=== PATIENT | male | born 1955 | race Caucasian/White ===

== ENCOUNTER 2023-04-10 20:20 | Observation (INO) ==
--- NOTE | 2023-04-10 20:34 | DR.DIZZY ---
HPI Time seen Time Seen by Provider: 04/10/23 20:33 Complaint Chief Complaint Doctor Comments: Patient states that he had 2 glasses of sangria yesterday. Today at 4pm he had 4 episodes of diarrhea that was bright red and subsequently had 3 syncopal episodes,a headache,dizziness, back pain,diaphoresis .Patient had dizziness 6 weeks ago and was evaluated by the cardiologists at [facility] in [place]. He had 5 vessels that had occlusions and stents were placed in 2 of them. Patient has been taking eliquis and plavix since the stents were placed. Patient denies: chest pain,sob,n,v. Context Stroke Symptoms: Dizziness; denies Ataxia, Aphasia, Acute confusion, Weakness of limb, Numbness of limbs or Slurring PMH PMH Past Medical History: Coronary Artery Disease, Dyslipidemia and Hypertension Past Surgical History: Yes Surgical History: Angioplasty/Stents and Ortho Surgery Family History Family Medical History: Diabetes Mellitus, Coronary Artery Disease, Sudden Cardiac and Hypertension Social History Do you use any recreational Drugs:: Yes ROS Review of Systems Constitutional: Diaphoresis Eyes: No Symptoms Reported ENTM: No Symptoms Reported Respiratoy: No Symptoms Reported Cardiovascular: Palpitations and Syncope (x3 episodes today); negative Chest Pain Gastrointestinal/Abdominal: Abdominal Pain and Diarrhea (x4 episodes); negative Nausea or Vomiting Genitourinary: No Symptoms Reported Neurological: No Symptoms Reported Musculoskeletal: Back Pain Integumentary: No Symptoms Reported Hematologic/Lymphatic: No Symptoms Reported and Easy Bleeding (bloody diarrhea) Endocrine: No Symptoms Reported Psychiatric: No Symptoms Reported All Other Systems: Reviewed and Negative PE Vital Signs Vitals: Vital Signs Temperature 98.5 F Pulse Rate 66 Pulse Rate 66 Pulse Rate 80 Pulse Rate 65 Pulse Rate 68 Pulse Rate 67 Pulse Rate 64 Pulse Rate 65 Pulse Rate 68 Pulse Rate 67 Pulse Rate 74 Pulse Rate 72 Pulse Rate 73 Pulse Rate 86 Pulse Rate 69 Pulse Rate 66 Pulse Rate 71 Pulse Rate 65 Pulse Rate 76 Respiratory Rate 16 Respiratory Rate 33 Respiratory Rate 24 Respiratory Rate 16 Respiratory Rate 17 Respiratory Rate 23 Respiratory Rate 14 Respiratory Rate 14 Respiratory Rate 17 Respiratory Rate 15 Respiratory Rate 21 Respiratory Rate 18 Respiratory Rate 15 Respiratory Rate 21 Respiratory Rate 17 Respiratory Rate 15 Respiratory Rate 15 Respiratory Rate 15 Respiratory Rate 24 Blood Pressure 121/64 Blood Pressure 122/67 Blood Pressure 122/62 Blood Pressure 123/61 Blood Pressure 123/61 Blood Pressure 124/58 Blood Pressure 123/56 Blood Pressure 139/65 Blood Pressure 159/69 Blood Pressure 129/72 Blood Pressure 130/69 Blood Pressure 118/69 O2 Sat by Pulse Oximetry 96 O2 Sat by Pulse Oximetry 96 O2 Sat by Pulse Oximetry 99 O2 Sat by Pulse Oximetry 96 O2 Sat by Pulse Oximetry 98 O2 Sat by Pulse Oximetry 98 O2 Sat by Pulse Oximetry 96 O2 Sat by Pulse Oximetry 96 O2 Sat by Pulse Oximetry 98 O2 Sat by Pulse Oximetry 97 O2 Sat by Pulse Oximetry 98 O2 Sat by Pulse Oximetry 99 O2 Sat by Pulse Oximetry 100 O2 Sat by Pulse Oximetry 100 O2 Sat by Pulse Oximetry 96 O2 Sat by Pulse Oximetry 97 O2 Sat by Pulse Oximetry 97 O2 Sat by Pulse Oximetry 97 O2 Sat by Pulse Oximetry 98 04/10/23 20:37 04/10/23 20:39 04/10/23 20:40 Temperature 98.5 F Pulse Rate 76 65 71 Respiratory Rate 24 15 15 O2 Sat by Pulse Oximetry 98 97 97 Oxygen Delivery Method Room Air Blood Pressure 118/69 Blood Pressure Mean Weight 210 lb 04/10/23 20:40 04/10/23 20:45 04/10/23 20:50 Temperature Pulse Rate 66 Respiratory Rate 15 O2 Sat by Pulse Oximetry 97 Oxygen Delivery Method Blood Pressure 130/69 129/72 Blood Pressure Mean 94 95 Weight 04/10/23 20:50 04/10/23 21:00 04/10/23 21:01 Temperature Pulse Rate 69 86 Respiratory Rate 17 21 O2 Sat by Pulse Oximetry 96 100 Oxygen Delivery Method Blood Pressure 159/69 Blood Pressure Mean 99 Weight 04/10/23 21:01 04/10/23 21:18 04/10/23 21:30 Temperature Pulse Rate 73 72 74 Respiratory Rate 15 18 21 O2 Sat by Pulse Oximetry 100 99 98 Oxygen Delivery Method Blood Pressure Blood Pressure Mean Weight 04/10/23 21:45 04/10/23 22:00 04/10/23 22:00 Temperature Pulse Rate 67 68 Respiratory Rate 15 17 O2 Sat by Pulse Oximetry 97 98 Oxygen Delivery Method Blood Pressure 139/65 Blood Pressure Mean 93 Weight 04/10/23 22:10 04/10/23 22:10 04/10/23 22:15 Temperature Pulse Rate 65 64 Respiratory Rate 14 14 O2 Sat by Pulse Oximetry 96 96 Oxygen Delivery Method Blood Pressure 123/56 Blood Pressure Mean 81 Weight 04/10/23 22:20 04/10/23 22:20 04/10/23 22:30 Temperature Pulse Rate 67 Respiratory Rate 23 O2 Sat by Pulse Oximetry 98 Oxygen Delivery Method Blood Pressure 124/58 123/61 Blood Pressure Mean 83 86 Weight 04/10/23 22:30 04/10/23 22:30 04/10/23 22:40 Temperature Pulse Rate 68 Respiratory Rate 17 O2 Sat by Pulse Oximetry 98 Oxygen Delivery Method Blood Pressure 123/61 122/62 Blood Pressure Mean 86 86 Weight 04/10/23 22:40 04/10/23 22:45 04/10/23 22:50 Temperature Pulse Rate 65 80 66 Respiratory Rate 16 24 33 H O2 Sat by Pulse Oximetry 96 99 96 Oxygen Delivery Method Blood Pressure Blood Pressure Mean Weight 04/10/23 22:50 04/10/23 23:00 04/10/23 23:00 Temperature Pulse Rate 66 Respiratory Rate 16 O2 Sat by Pulse Oximetry 96 Oxygen Delivery Method Blood Pressure 122/67 121/64 Blood Pressure Mean 88 87 Weight MDM Differential Diagnosis Differential Diagnosis: Myocardial infarction Differential Diagnosis Comment: GI bleed,Obstr/Perf/inflam,electrolyte abnormality COURSE Treatment Treatment: 20:33 Patient was brought to a monitored room.IV access was initiated 21:27 Patient has a magnesium 1.6 and will be given magnesium 2g iv.Patient has pos. hemoccult and received protonix 80mg iv. 22:50 Patient has been accepted to Dr Stroud's service for further inpatient evaluation. Abd/pelvis CT with iv contrast revealed diverticulosis and states that it may be a source of the bleeding.Patient has been stable in the ED. [facility] Labs Reviewed Laboratory Results Reviewed?: Yes Result Diagrams: 04/10/23 20:50 04/10/23 20:50 Laboratory: WBC 10.5 X10^3/uL (3.6-10.0) H 04/10/23 20:50 RBC 3.48 X10^6/uL (4.7-6.0) L 04/10/23 20:50 Hgb 10.3 g/dL (13.5-18.0) L 04/10/23 20:50 Hct 28.8 % (42.0-54.0) L 04/10/23 20:50 MCV 82.7 fL (80.0-100.0) 04/10/23 20:50 MCH 29.8 pg (27.0-34.0) 04/10/23 20:50 MCHC 36.0 g/dL (33.0-35.0) H 04/10/23 20:50 RDW 13.4 % (11.6-16.5) 04/10/23 20:50 Plt Count 206 X10^3/uL (150.0-450.0) 04/10/23 20:50 MPV 8.0 fL (7.4-11.0) 04/10/23 20:50 Neut % (Auto) 76.7 % (42.0-75.0) H 04/10/23 20:50 Lymph % (Auto) 15.6 % (21.0-51.0) L 04/10/23 20:50 [place] % (Auto) 6.8 % (0.0-13.0) 04/10/23 20:50 Eos % (Auto) 0.5 % (0.9-2.9) L 04/10/23 20:50 Baso % (Auto) 0.4 % (0.2-1.0) 04/10/23 20:50 Neut # (Auto) 8.0 x10^3/uL (2.2-4.8) H 04/10/23 20:50 Lymph # (Auto) 1.6 X10^3/uL (1.3-2.9) 04/10/23 20:50 [place] # (Auto) 0.7 x10^3/uL (0.3-0.8) 04/10/23 20:50 Eos # (Auto) 0.1 x10^3/uL (0.0-0.2) 04/10/23 20:50 Baso # (Auto) 0.0 X10^3/uL (0.0-0.1) 04/10/23 20:50 Absolute Nucleated RBC 0.0 /100WBC 04/10/23 20:50 PT 13.9 SECONDS (11.8-14.3) 04/10/23 20:50 INR Target Range - 04/10/23 20:50 INR 1.09 (0.8-1.3) 04/10/23 20:50 APTT 25.8 SECONDS (22.9-36.5) 04/10/23 20:50 PTT Comment - 06/25/23 20:50 D-Dimer 0.40 ug/ml (0.0-0.57) 04/10/23 20:50 Sodium 139 mmol/L (136-145) 04/10/23 20:50 Corrected Sodium 140 mmol/L (136-145) 04/10/23 20:50 Potassium 4.1 mmol/L (3.5-5.1) 04/10/23 20:50 Chloride 104 mmol/L (98-107) 04/10/23 20:50 Carbon Dioxide 24.5 mmol/L (21-32) 04/10/23 20:50 BUN 23 mg/dL (7-18) H 04/10/23 20:50 Creatinine 1.13 mg/dL (0.70-1.30) 04/10/23 20:50 Est GFR (MDRD) Af Amer > 60 (>60) 04/10/23 20:50 Est GFR (MDRD) Non-Af > 60 (>60) 04/10/23 20:50 Glucose 130 mg/dL (65-99) H 04/10/23 20:50 Lactic Acid 1.0 mmol/L (0.4-2.0) 04/10/23 20:50 Calcium 8.0 mg/dL (8.5-10.1) L 04/10/23 20:50 Corrected Calcium 8.6 mg/dL (8.5-10.1) 04/10/23 20:50 Magnesium 1.6 mg/dL (2.0-2.9) L 04/10/23 20:50 Total Bilirubin 0.30 mg/dL (0.2-1.0) 04/10/23 20:50 AST 22 Units/L (15-37) 04/10/23 20:50 ALT 37 Units/L (12-78) 04/10/23 20:50 Alkaline Phosphatase 48 Units/L (46-116) 04/10/23 20:50 Creatine Kinase 112 Units/L (39-308) 04/10/23 20:50 Troponin I High Sens 34.5 ng/L (4.0-60.0) 04/10/23 20:50 C-Reactive Protein 1.00 mg/L (0-3.0) 04/10/23 20:50 B-Natriuretic Peptide 43.2 pg/mL (0-79) 04/10/23 20:50 Total Protein 6.4 g/dL (6.4-8.2) 04/10/23 20:50 Albumin 3.3 g/dL (3.4-5.0) L 04/10/23 20:50 Globulin 3.1 g/dL (2.5-4.5) 04/10/23 20:50 Albumin/Globulin Ratio 1.1 Ratio (1.1-2.1) 04/10/23 20:50 Stool Occult Blood Positive (NEGATIVE) A 04/10/23 20:59 XRAY X-ray Results: History: Syncope Episode Relevant Clinical Information Exam :BRAIN W/O CON Technique: Thin section axial ct images of the brain were obtained from the foramen magnum to the vertex without contrast. Sagittal and coronal rebecca nstructions were also performed. Comparison: None Findings: The ventricles are within normal limits in size. No midline shift, mass effect or extra-axial fluid collections. No evidence of acute hemorrhage or acute macroinfarction. Mild cortical atrophy compatible with patient's age. The visualized paranasal sinuses and mastoids are unremarkable. The calvarium is intact. Impression: Mild cortical atrophy. No acute intracranial pathology Electronically signed by: Matty Bermeo (Apr 10, 2023 21:31:49) HISTORY Rectal Bleeding STUDY ABDOMEN/PELVIS W/O CON COMPARISON TECHNIQUE Multiple axial images of the abdomen and pelvis were obtained from the lung bases to the pubic symphysis without the administration of IV contrast. Dose reduction techniques including Automated Exposure Control (AEC) and adjustment of mA and kV were utilized. FINDINGS Minimal basilar atelectasis without effusion. The heart size is normal. There is atherosclerosis in the circumflex and RCA. The liver, gallbladder, spleen, adrenal glands are normal. There is pancreatic atrophy. The kidneys are normal in size and there is no stone or hydronephrosis. There is fluid in the stomach. Small bowel and appendix are normal. There is diverticulosis of the distal colon but no convincing diverticulitis. Urinary bladder is normal. Prostate measures up to 6.0 cm in diameter. There is no worrisome bone marrow lesion. IMPRESSION 1. No etiology for rectal bleeding identified with the exception of the diverticulosis in the distal colon which could be a source of bleeding. 2. Prostate hypertrophy. Electronically signed by: Carlos Daley (Apr 10, 2023 22:34:43) EKG Compared to prior EKG Dated: 04/10/23 Rate: 67 [place]: Normal (Negative axis) Rhythm: NSR and PVCs (occasional Pvcs) Opioid Opioid Risk Tool Age (Asif box if 16-45): No History of Preadolescent Sexual Abuse: No Total: 0 Total Score Risk Category: Low Risk Copyright: [facility] predicting aberrant behaviors Discharge Plan Diagnosis Discharge Problem: Dizziness, GI (gastrointestinal hemorrhage), Hypomagnesemia Discharge Plan Patient Disposition: ADMITTED INPATIENT Condition: Stable Prescriptions: No Action aspirin 81 mg tablet,delayed release (DR/EC) 81 mg PO QDAY diltiazem HCl 60 mg tablet 60 mg PO QDAY rosuvastatin 5 mg tablet 5 mg PO QDAY metoprolol tartrate 25 mg tablet 12.5 mg PO BID prasugrel 10 mg tablet 10 mg PO QDAY Eliquis 5 mg tablet 5 mg PO BID Health Concerns: Post Hospitalization: new medications and changes needed to prevent readmission or further decline. Pt educated and given instructions on all concerns. Plan of Treatment: Continue with present treatment and follow up plan. Pt is to keep follow up appointment as instructed and take medications as ordered. Orders to Discharge Patient Discharge Orders: Transfer (Routine); Ordered 04/10/23 Ordered By: Katty Young Follow ups/Referrals Follow ups/Referrals: Dorian Lizama [Primary Care Provider] - 3 days Instructions Stand Alone Forms: Post Hospital Follow Up Care ADDITIONAL NOTES Additional Notes Additional Notes: EKG #2 23:04 RATE 69 Rhythm NSR
--- NOTE | 2023-04-10 20:46 | EKG ---
Test Reason : syncope, sob, diaphoresis Blood Pressure : */* mmHG Vent. Rate : 67 BPM Atrial Rate : 67 BPM P-R Int : 186 ms QRS Dur : 80 ms QT Int : 388 ms P-R-T Axes : 42 -23 11 degrees QTc Int : 409 ms Sinus rhythm with occasional premature ventricular complexes Inferior-posterior infarct , age undetermined Abnormal ECG No previous ECGs available Confirmed by Luís Harding ([id number]) on 04/11/2023 7:57:19 PM Referred By: Confirmed By: Luís Harding
[2023-04-10 21:04] LABS: BASOPHILS % (AUTO) 0.4 % (0.2-1.0); EOSINOPHILS # (AUTO) 0.1 x10^3/uL (0.0-0.2); EOSINOPHILS % (AUTO) 0.5 % (0.9-2.9); HEMATOCRIT 28.8 % (42.0-54.0); HEMOGLOBIN 10.3 g/dL (13.5-18.0); LYMPHOCYTES # (AUTO) 1.6 X10^3/uL (1.3-2.9); LYMPHOCYTES % (AUTO) 15.6 % (21.0-51.0); MEAN CORPUSCULAR HEMOGLOBIN 29.8 pg (27.0-34.0); MEAN CORPUSCULAR VOLUME 82.7 fL (80.0-100.0); MONOCYTES # (AUTO) 0.7 x10^3/uL (0.3-0.8); MONOCYTES % (AUTO) 6.8 % (0.0-13.0); NEUTROPHILS % (AUTO) 76.7 % (42.0-75.0); PLATELET COUNT 206 X10^3/uL (150.0-450.0); RED BLOOD COUNT 3.48 X10^6/uL (4.7-6.0); RED CELL DISTRIBUTION WIDTH 13.4 % (11.6-16.5); WHITE BLOOD COUNT 10.5 X10^3/uL (3.6-10.0)
[2023-04-10 21:07] LABS: INR 1.09 (0.8-1.3)
[2023-04-10 21:14] LABS: ALANINE AMINOTRANSFERASE 37 Units/L (12-78); ALBUMIN 3.3 g/dL (3.4-5.0); ALKALINE PHOSPHATASE 48 Units/L (46-116); ASPARTATE AMINO TRANSFERASE 22 Units/L (15-37); BLOOD UREA NITROGEN 23 mg/dL (7-18); CARBON DIOXIDE 24.5 mmol/L (21-32); CHLORIDE 104 mmol/L (98-107); COR CA(FOR HYPOALB) 8.6 mg/dL (8.5-10.1); COR NA(FOR HYPERGLY) 140 mmol/L (136-145); CREATINE KINASE 112 Units/L (39-308); CREATININE 1.13 mg/dL (0.70-1.30); GLUCOSE 130 mg/dL (65-99); MAGNESIUM 1.6 mg/dL (2.0-2.9); POTASSIUM 4.1 mmol/L (3.5-5.1); SODIUM 139 mmol/L (136-145); TOTAL PROTEIN 6.4 g/dL (6.4-8.2); eGFR NON BLACK RACES > 60 (>60)
[2023-04-10] MEDS ORDERED: PROTONIX INJ 40 MG VIAL IVP ONE (21:26)
[2023-04-10] MEDS ORDERED: MAGNESIUM SULFATE 1 GRAM/100 mL PREMIX 1 G/100 ML BAG IV ONE ×4 (21:27→21:41)
[2023-04-10] MEDS ORDERED: PROTONIX INJ 40 MG VIAL ONE (21:30)
--- NOTE | 2023-04-10 21:33 | CT ---
History: Syncope Episode Relevant Clinical InformationExam :BRAIN W/O CONTechnique: Thin section axial ct images of the brain were obtained from the foramen magnum to the vertex without contrast. Sagittal and coronal reconstructions were also performed.Comparison: NoneFindings:The ventricles are within normal limits in size. No midline shift, mass effect or extra-axial fluid collections. No evidence of acute hemorrhage or acute macroinfarction. Mild cortical atrophy compatible with patient's age.The visualized paranasal sinuses and mastoids are unremarkable. The calvarium is intact.Impression:Mild cortical atrophy.No acute intracranial pathologyElectronically signed by: Matty Bermeo (Apr 10, 2023 21:31:49)
--- NOTE | 2023-04-10 22:35 | CT ---
HISTORYRectal BleedingSTUDYABDOMEN/PELVIS W/O CONCOMPARISONTECHNIQUEMultiple axial images of the abdomen and pelvis were obtained from the lung bases to the pubic symphysis without the administration of IV contrast. Dose reduction techniques including Automated Exposure Control (AEC) and adjustment of mA and kV were utilized.FINDINGSMinimal basilar atelectasis without effusion. The heart size is normal. There is atherosclerosis in the circumflex and RCA. The liver, gallbladder, spleen, adrenal glands are normal. There is pancreatic atrophy. The kidneys are normal in size and there is no stone or hydronephrosis. There is fluid in the stomach. Small bowel and appendix are normal. There is diverticulosis of the distal colon but no convincing diverticulitis. Urinary bladder is normal. Prostate measures up to 6.0 cm in diameter. There is no worrisome bone marrow lesion.IMPRESSION1. No etiology for rectal bleeding identified with the exception of the diverticulosis in the distal colon which could be a source of bleeding. 2. Prostate hypertrophy.Electronically signed by: Carlos Daley (Apr 10, 2023 22:34:43)
--- NOTE | 2023-04-10 23:06 | EKG ---
Test Reason : palpitations Blood Pressure : */* mmHG Vent. Rate : 69 BPM Atrial Rate : 69 BPM P-R Int : 192 ms QRS Dur : 78 ms QT Int : 404 ms P-R-T Axes : 49 -17 29 degrees QTc Int : 432 ms Normal sinus rhythm Inferior-posterior infarct (cited on or before 10-APR-2023) Abnormal ECG When compared with ECG of 10-APR-2023 20:44, (Unconfirmed) premature ventricular complexes are no longer present Confirmed by Luís Harding (4) on 04/11/2023 7:57:11 PM Referred By: Confirmed By: Luís Harding
[2023-04-11 00:49] VITALS: BMI 28.2
[2023-04-11 05:20] LABS: BASOPHILS % (AUTO) 0.5 % (0.2-1.0); EOSINOPHILS # (AUTO) 0.1 x10^3/uL (0.0-0.2); EOSINOPHILS % (AUTO) 0.8 % (0.9-2.9); HEMATOCRIT 27.1 % (42.0-54.0); HEMOGLOBIN 9.6 g/dL (13.5-18.0); LYMPHOCYTES # (AUTO) 1.9 X10^3/uL (1.3-2.9); LYMPHOCYTES % (AUTO) 26.8 % (21.0-51.0); MEAN CORPUSCULAR HEMOGLOBIN 29.6 pg (27.0-34.0); MEAN CORPUSCULAR HGB CONC 35.5 g/dL (33.0-35.0); MEAN CORPUSCULAR VOLUME 83.5 fL (80.0-100.0); MEAN PLATELET VOLUME 8.4 fL (7.4-11.0); MONOCYTES # (AUTO) 0.6 x10^3/uL (0.3-0.8); MONOCYTES % (AUTO) 8.4 % (0.0-13.0); NEUTROPHILS # (AUTO) 4.6 x10^3/uL (2.2-4.8); NEUTROPHILS % (AUTO) 63.5 % (42.0-75.0); PLATELET COUNT 194 X10^3/uL (150.0-450.0); RED BLOOD COUNT 3.24 X10^6/uL (4.7-6.0); WHITE BLOOD COUNT 7.2 X10^3/uL (3.6-10.0)
--- NOTE | 2023-04-11 05:33 | RAD ---
HISTORYPalpitations and shortness of breathSTUDYCHEST, 1 MGNNYEIYHTYVVD40/30/[facility]INDINGSThe trachea is midline. The cardiac silhouette is unremarkable . The lungs are clear without focal infiltrate or effusion. The bony thorax is unremarkable.IMPRESSIONNo acute cardiopulmonary disease.Electronically signed by: RENAE WEAVER (Apr 11, 2023 05:31:54)
[2023-04-11 05:38] LABS: ALANINE AMINOTRANSFERASE 31 Units/L (12-78); ALKALINE PHOSPHATASE 43 Units/L (46-116); ASPARTATE AMINO TRANSFERASE 18 Units/L (15-37); BLOOD UREA NITROGEN 18 mg/dL (7-18); CALCIUM 7.8 mg/dL (8.5-10.1); CARBON DIOXIDE 25.4 mmol/L (21-32); CHLORIDE 106 mmol/L (98-107); COR CA(FOR HYPOALB) 8.6 mg/dL (8.5-10.1); COR NA(FOR HYPERGLY) 140 mmol/L (136-145); CREATININE 0.87 mg/dL (0.70-1.30); GLUCOSE 113 mg/dL (65-99); POTASSIUM 4.2 mmol/L (3.5-5.1); SODIUM 140 mmol/L (136-145); eGFR NON BLACK RACES > 60 (>60)
[2023-04-11 08:39] VITALS: RESP 20
[2023-04-11] MEDS ORDERED: CRESTOR TAB 10 MG PO SCH ×2 (09:00→21:00)
[2023-04-11] MEDS: LOPRESSOR TAB 25 MG PO SCH ×2 (09:04→21:50)
[2023-04-11] MEDS: CARDIZEM TAB 30 MG PLAIN PO SCH ×2 (09:05→09:19)
[2023-04-11] MEDS: PATIENT'S HOME MEDICATION (Prasugrel 10 mg tablet) PO SCH ×2 (09:10→11:28)
--- NOTE | 2023-04-11 10:05 | DR.H&P ---
H&P - History & Physical for Day of: H&P Date: 04/10/23 - Chief Complaint Chief Complaint: DIARRHEA, BLOOD IN STOOL, SYNCOPE, HEADACHE, DIZZINESS - Past Medical History Past Medical History: Coronary Artery Disease, Dyslipidemia, Hypertension - Past Surgical History Surgical History: Ortho Surgery - Family History Family Medical History: Diabetes Mellitus, Sudden Cardiac - Social History Does patient currently use any type of tobacco product: No Have you used tobacco products in the last 12 months: No Type of Tobacco Use: None Does any household member use tobacco: No Alcohol Use: Occasionally Drug Use: None - Review of Systems Constitutional: Sweats Eyes: No Symptoms Reported ENT: No Symptoms Reported Respiratory: No Symptoms Reported Cardiovascular: [place] Gastrointestinal: Diarrhea, Hematochezia. denies: Nausea, Vomiting, Abdominal Pain, Constipation Genitourinary: No Symptoms Reported Musculoskeletal: No Symptoms Reported Skin: No Symptoms Reported Neurological: See HPI, Other (HEADACHE ) - Physical Exam Vital Signs: Vital Signs Temperature 99.0 F Temperature 99.0 F Temperature 98.4 F Temperature 98.4 F Pulse Rate [Left] 72 Pulse Rate [Left] 72 Pulse Rate [Left] 68 Pulse Rate [Left] 68 Respiratory Rate 20 Respiratory Rate 20 Respiratory Rate 22 Respiratory Rate 22 Blood Pressure [Left Arm] 128/72 Blood Pressure [Left Arm] 128/72 Blood Pressure [Left Arm] 119/73 Blood Pressure [Left Arm] 119/73 O2 Sat by Pulse Oximetry 99 O2 Sat by Pulse Oximetry 99 O2 Sat by Pulse Oximetry 97 O2 Sat by Pulse Oximetry 97 04/11/23 08:00 04/11/23 08:35 04/11/23 08:35 Temperature 99.0 F Temperature Source Oral Pulse Rate [Left] 72 Pulse Assessment Method [Left] Dinamap Respiratory Rate 20 Respiratory Depth Normal Respiratory Effort Normal Respiratory Pattern Normal O2 Sat by Pulse Oximetry 99 Oxygen Delivery Method Room Air FIO2% 21 Blood Pressure [Left Arm] 128/72 Blood Pressure Mean [Left Arm] 90 Blood Pressure Source [Left Arm] Automatic Cuff Blood Pressure Position [Left Arm] Semi [place]'s 04/11/23 08:00 04/11/23 07:00 Temperature 99.0 F Temperature Source Oral Pulse Rate [Left] 72 Pulse Assessment Method [Left] Dinamap Respiratory Rate 20 Respiratory Depth Normal Respiratory Effort Normal Non-Labored Respiratory Pattern Normal O2 Sat by Pulse Oximetry 99 Oxygen Delivery Method Room Air FIO2% Blood Pressure [Left Arm] 128/72 Blood Pressure Mean [Left Arm] 90 Blood Pressure Source [Left Arm] Automatic Cuff Blood Pressure Position [Left Arm] Semi [place]'s Oriented: Normal Eyes: Normal Ear: Normal Nose: Normal Throat: Normal Respiratory: Diminished Throughout Cardiovascular: Normal : Normal Auscultation: Bowel Sounds: Normal Palpation: Normal Tenderness: Normal Skin: Normal Musculoskeletal: Normal Psychiatric: Normal Mood Description: Calm Affect: Normal Speech Pattern: Clear - Assessment/Plan (1) GI (gastrointestinal hemorrhage) Qualifiers: GI bleed type/associated pathology: unspecified gastrointestinal hemorrhage type Qualified Code(s): K92.2 - Gastrointestinal hemorrhage, unspecified Status: Acute Plan: ADMIT, CONSULT FOR POSSIBLE ENDOSCOPY, NORMAL SALINE AT [facility], METOPROLOL 12.5MG BID, PRASUGREL 10MG DAILY, AND ELIQUIS 5MG BID (2) Anemia Qualifiers: Anemia type: unspecified type Qualified Code(s): D64.9 - Anemia, unspecified Status: Acute (3) Hypomagnesemia Status: Acute (4) Syncope Qualifiers: Syncope type: unspecified Qualified Code(s): R55 - Syncope and collapse Status: Acute (5) HTN (hypertension) Qualifiers: Hypertension type: primary hypertension Qualified Code(s): I10 - Essential (primary) hypertension Status: Chronic (6) CAD (coronary artery disease) Qualifiers: Coronary Disease-Associated Artery/Lesion type: [place] artery [place] vs. tr ansplanted heart: [place] heart Associated angina: unspecified whether angina present Qualified Code(s): I25.10 - Atherosclerotic heart disease of [place] coronary artery without angina pectoris Status: Chronic - Allergies Allergies/Adverse Reactions: Allergies Allergy/AdvReac Type Severity Reaction Status Date / Time fenofibrate [From Tricor] Allergy Verified 04/10/23 21:21 atorvastatin [From Lipitor] AdvReac Verified 04/10/23 21:21 - Medications Home Medications: Home Medications Medication Instructions Recorded Confirmed apixaban 5 mg tablet (Eliquis) 5 mg PO BID 04/10/23 04/10/23 metoprolol tartrate 25 mg tablet 12.5 mg PO BID 04/10/23 04/10/23 prasugrel 10 mg tablet 10 mg PO QDAY 04/10/23 04/10/23
[2023-04-11] MEDS: NS 1,000 ML IV 1,000 ML IV SCH (16:00)
[2023-04-11 16:17] LABS: HEMATOCRIT 28.9 % (42.0-54.0); HEMOGLOBIN 10.2 g/dL (13.5-18.0)
[2023-04-11] MEDS: ELIQUIS PO SCH (21:50)
[2023-04-12 05:14] LABS: ALANINE AMINOTRANSFERASE 33 Units/L (12-78); ALBUMIN 2.9 g/dL (3.4-5.0); ALKALINE PHOSPHATASE 42 Units/L (46-116); ASPARTATE AMINO TRANSFERASE 22 Units/L (15-37); BLOOD UREA NITROGEN 15 mg/dL (7-18); CALCIUM 7.8 mg/dL (8.5-10.1); CARBON DIOXIDE 26.6 mmol/L (21-32); CHLORIDE 107 mmol/L (98-107); COR CA(FOR HYPOALB) 8.7 mg/dL (8.5-10.1); COR NA(FOR HYPERGLY) 140 mmol/L (136-145); CREATININE 0.87 mg/dL (0.70-1.30); GLUCOSE 111 mg/dL (65-99); MAGNESIUM 1.9 mg/dL (2.0-2.9); POTASSIUM 3.9 mmol/L (3.5-5.1); SODIUM 140 mmol/L (136-145); TOTAL PROTEIN 5.8 g/dL (6.4-8.2); eGFR NON BLACK RACES > 60 (>60)
[2023-04-12 05:18] LABS: BASOPHILS % (AUTO) 0.5 % (0.2-1.0); EOSINOPHILS # (AUTO) 0.2 x10^3/uL (0.0-0.2); EOSINOPHILS % (AUTO) 2.9 % (0.9-2.9); HEMATOCRIT 25.6 % (42.0-54.0); HEMOGLOBIN 9.1 g/dL (13.5-18.0); LYMPHOCYTES # (AUTO) 2.2 X10^3/uL (1.3-2.9); LYMPHOCYTES % (AUTO) 39.9 % (21.0-51.0); MEAN CORPUSCULAR HEMOGLOBIN 29.4 pg (27.0-34.0); MEAN CORPUSCULAR HGB CONC 35.4 g/dL (33.0-35.0); MEAN CORPUSCULAR VOLUME 83.1 fL (80.0-100.0); MEAN PLATELET VOLUME 8.2 fL (7.4-11.0); MONOCYTES # (AUTO) 0.5 x10^3/uL (0.3-0.8); MONOCYTES % (AUTO) 8.7 % (0.0-13.0); NEUTROPHILS # (AUTO) 2.6 x10^3/uL (2.2-4.8); PLATELET COUNT 175 X10^3/uL (150.0-450.0); RED BLOOD COUNT 3.08 X10^6/uL (4.7-6.0); RED CELL DISTRIBUTION WIDTH 13.3 % (11.6-16.5); WHITE BLOOD COUNT 5.4 X10^3/uL (3.6-10.0)
[2023-04-12] MEDS ORDERED: MAGNESIUM SULFATE 1 GRAM/100 mL PREMIX 1 G/100 ML BAG IV SCH (07:00)
[2023-04-12] MEDS ORDERED: PHARMACY CONSULT - POTASSIUM & MAGNESIUM XX SCH (07:00)
[2023-04-12] MEDS: ELIQUIS PO SCH (08:07)
[2023-04-12] MEDS: PATIENT'S HOME MEDICATION (Prasugrel 10 mg tablet) PO SCH (08:08)
[2023-04-12] MEDS: LOPRESSOR TAB 25 MG PO SCH (08:22)
--- NOTE | 2023-04-12 10:24 | PCM.PROG ---
Progress Note - Progress Note for Day of Date of Exam: 04/12/23 - Subjective Subjective: IS CURRENTLY OBSERVATION STATUS FOR TREATMENT OF GI BLEED, ANEMIA, SYNCOPE, HYPOMAGNESEMIA. HE HAS A PMH OF CAD, DYSLPIPIDEMIA, HTN, A-FIB, AND RECENT CORONARY STENTS. TODAY, HE IS ALERT AND ORIENTED, LYING IN BED ON MORNING ROUNDS. HE CONTINUES TO COMPLAIN OF WEAKNESS TODAY, WITH DIZZINESS AT TIMES. HE DENIES SIGNIFICANT IMPROVEMENT IN WEAKNESS SINCE ADMISSION. HE DOES DENY NOTICING ANY BRIGHT RED BLOOD IN STOOLS THIS MORNING. ON ADMISSION, HE IS BRADYCARDIC WITH HR NOTED TO BE IN THE 50s THIS MORNING. BILATERAL LUNGS ARE NOTED WITH DIMINISHED LUNG SOUNDS THROUGHOUT. ABDOMEN IS ROUND, SOFT, AND NON- TENDER WITH NORMAL BOWEL SOUNDS NOTED IN ALL QUADRANTS. GOOD MOVEMENT NOTED TO UPPER AND LOWER EXTREMITIES WITH NO EDEMA NOTED. HIS VITALS THIS MORNING ARE: 98.6-51-20-98%-109/56. LABS WERE OBTAINED. WBC 5.4, RBC 3.08, HGB 9.1, HCT 25.6, PLT COUNT 175, SODIUM 140, POTASSIUM 3.9, CHLORIDE 107, BUN 15, CREATININE 0.87, GLUCOSE 111, CALCIUM 7.8, MAGNESIUM 1.9, AST 22, ALT 33, ALK PHOS 42, TOTAL PROTEIN 5.8, ALBUMIN 2.9. HE IS CURRENTLY RECEIVING NORMAL SALINE AT [facility] AND HIS HOME MEDICATIONS OF METOPROLOL 12.5MG BID, PRASUGREL 10MG DAILY, AND ELIQUIS 5MG BID WERE RESUMED. 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 WE ARE IN AGREEMENT WITH PLANS. OTHERWISE, WE WILL FOLLOW-UP WITH AM LABS AND CONTINUE TO MONITOR. TIME SPENT ON CLINICAL ASSESSMENT, REVIEWING LABS AND IMAGING, DECISION MAKING, AND DOCUMENTATION GREATER THAN 45 MINUTES. - Past Medical Family Social History Past Med/Fam/Surg Hx: No changes since H&P Allergies: Allergies fenofibrate [From Tricor] Allergy (Verified 04/10/23 21:21) atorvastatin [From Lipitor] Adverse Reaction (Verified 04/10/23 21:21) - Review of Systems ROS: No change since H&P - Vital Signs and I&O's Vital Signs: Vital Signs Temperature 98.6 F Temperature 97.9 F Pulse Rate [Left] 51 Pulse Rate [Left] 60 Respiratory Rate 20 Respiratory Rate 20 Blood Pressure [Left Arm] 109/56 Blood Pressure [Left Arm] 107/57 O2 Sat by Pulse Oximetry 98 O2 Sat by Pulse Oximetry 97 04/12/23 07:51 04/12/23 09:13 04/12/23 09:13 Temperature 98.6 F Temperature Source Oral Pulse Rate [Left] 51 L Pulse Assessment Method [Left] Dinamap Respiratory Rate 20 Respiratory Depth Normal Respiratory Effort Normal Non-Labored Respiratory Pattern Normal O2 Sat by Pulse Oximetry 98 Oxygen Delivery Method Room Air Blood Pressure [Left Arm] 109/56 Blood Pressure Mean [Left Arm] 73 Blood Pressure Source [Left Arm] Automatic Cuff Blood Pressure Position [Left Arm] Semi [place]'s 04/12/23 07:00 Temperature Temperature Source Pulse Rate [Left] Pulse Assessment Method [Left] Respiratory Rate Respiratory Depth Normal Respiratory Effort Normal Non-Labored Respiratory Pattern Normal O2 Sat by Pulse Oximetry Oxygen Delivery Method Room Air Blood Pressure [Left Arm] Blood Pressure Mean [Left Arm] Blood Pressure Source [Left Arm] Blood Pressure Position [Left Arm] Intake and Output: Intake & Output 04/09/23 04/10/23 04/11/23 04/12/23 11:59 11:59 11:59 11:59 Intake Total 0 / 0 2218 / 2218 Balance 0 / 0 221 / 221 - Physical Exam Oriented: Normal Eyes: Normal Ear: Normal Nose: Normal Throat: Normal Respiratory: Generalized, Diminished Cardiovascular: Bradycardia : Normal Auscultation: Bowel Sounds: Normal Palpation: Normal Tenderness: Normal Skin: Normal Musculoskeletal: Normal Psychiatric: Normal Mood Description: Calm Affect: Normal Speech Pattern: Clear, Appropriate - Laboratory and Diagnostics Result Diagrams: 04/12/23 04:38 04/12/23 04:38 Labs: Laboratory WBC 5.4 X10^3/uL (3.6-10.0) 04/12/23 04:38 RBC 3.08 X10^6/uL (4.7-6.0) L 04/12/23 04:38 Hgb 9.1 g/dL (13.5-18.0) L 04/12/23 04:38 Hct 25.6 % (42.0-54.0) L 04/12/23 04:38 MCV 83.1 fL (80.0-100.0) 04/12/23 04:38 MCH 29.4 pg (27.0-34.0) 04/12/23 04:38 MCHC 35.4 g/dL (33.0-35.0) H 04/12/23 04:38 RDW 13.3 % (11.6-16.5) 04/12/23 04:38 Plt Count 175 X10^3/uL (150.0-450.0) 04/12/23 04:38 MPV 8.2 fL (7.4-11.0) 04/12/23 04:38 Neut % (Auto) 48.0 % (42.0-75.0) 04/12/23 04:38 Lymph % (Auto) 39.9 % (21.0-51.0) 04/12/23 04:38 [place] % (Auto) 8.7 % (0.0-13.0) 04/12/23 04:38 Eos % (Auto) 2.9 % (0.9-2.9) 04/12/23 04:38 Baso % (Auto) 0.5 % (0.2-1.0) 04/12/23 04:38 Neut # (Auto) 2.6 x10^3/uL (2.2-4.8) 04/12/23 04:38 Lymph # (Auto) 2.2 X10^3/uL (1.3-2.9) 04/12/23 04:38 [place] # (Auto) 0.5 x10^3/uL (0.3-0.8) 04/12/23 04:38 Eos # (Auto) 0.2 x10^3/uL (0.0-0.2) 04/12/23 04:38 Baso # (Auto) 0.0 X10^3/uL (0.0-0.1) 04/12/23 04:38 Absolute Nucleated RBC 0.1 /100WBC 04/12/23 04:38 PT 13.9 SECONDS (11.8-14.3) 04/10/23 20:50 INR Target Range - 04/10/23 20:50 INR 1.09 (0.8-1.3) 04/10/23 20:50 APTT 25.8 SECONDS (22.9-36.5) 04/10/23 20:50 PTT Comment - 04/10/23 20:50 D-Dimer 0.40 ug/ml (0.0-0.57) 04/10/23 20:50 Sodium 140 mmol/L (136-145) 04/12/23 04:38 Corrected Sodium 140 mmol/L (136-145) 04/12/23 04:38 Potassium 3.9 mmol/L (3.5-5.1) 04/12/23 04:38 Chloride 107 mmol/L (98-107) 04/12/23 04:38 Carbon Dioxide 26.6 mmol/L (21-32) 04/12/23 04:38 BUN 15 mg/dL (7-18) 04/12/23 04:38 Creatinine 0.87 mg/dL (0.70-1.30) 04/12/23 04:38 Est GFR (MDRD) Af Amer > 60 (>60) 04/12/23 04:38 Est GFR (MDRD) Non-Af > 60 (>60) 04/12/23 04:38 Glucose 111 mg/dL (65-99) H 04/12/23 04:38 POC Glucose (mg/dL) 117 mg/dL (65-99) H 04/11/23 05:29 Lactic Acid 1.0 mmol/L (0.4-2.0) 04/10/23 20:50 Calcium 7.8 mg/dL (8.5-10.1) L 04/12/23 04:38 Corrected Calcium 8.7 mg/dL (8.5-10.1) 04/12/23 04:38 Magnesium 1.9 mg/dL (2.0-2.9) L 04/12/23 04:38 Total Bilirubin 0.20 mg/dL (0.2-1.0) 04/12/23 04:38 AST 22 Units/L (15-37) 04/12/23 04:38 ALT 33 Units/L (12-78) 04/12/23 04:38 Alkaline Phosphatase 42 Units/L (46-116) L 04/12/23 04:38 Creatine Kinase 110 Units/L (39-308) 04/10/23 23:10 Troponin I High Sens 34.6 ng/L (4.0-60.0) 04/10/23 23:10 C-Reactive Protein 1.00 mg/L (0-3.0) 04/10/23 20:50 B-Natriuretic Peptide 43.2 pg/mL (0-79) 04/10/23 20:50 Total Protein 5.8 g/dL (6.4-8.2) L 04/12/23 04:38 Albumin 2.9 g/dL (3.4-5.0) L 04/12/23 04:38 Globulin 2.9 g/dL (2.5-4.5) 04/12/23 04:38 Albumin/Globulin Ratio 1.0 Ratio (1.1-2.1) L 04/12/23 04:38 Stool Occult Blood Positive (NEGATIVE) A 04/10/23 20:59 - Plan (1) GI (gastrointestinal hemorrhage) Status: Acute Qualifiers: GI bleed type/associated pathology: unspecified gastrointestinal hemorrhage type Qualified Code(s): K92.2 - Gastrointestinal hemorrhage, unspecified Plan: SIGMOIDOSCOPY TODAY, NORMAL SALINE AT [facility], METOPROLOL 12.5MG BID, PRASUGREL 10MG DAILY, AND ELIQUIS 5MG BID (2) Anemia Status: Acute Qualifiers: Anemia type: unspecified type Qualified Code(s): D64.9 - Anemia, unspecified Plan: MONITOR H&H (3) Hypomagnesemia Status: Acute Plan: REPLACE MAGNESIUM (4) Syncope Status: Acute Qualifiers: Syncope type: unspecified Qualified Code(s): R55 - Syncope and collapse (5) HTN (hypertension) Status: Chronic Qualifiers: Hypertension type: primary hypertension Qualified Code(s): I10 - Essential (primary) hypertension (6) CAD (coronary artery disease) Status: Chronic Qualifiers: Coronary Disease-Associated Artery/Lesion type: [place] artery [place] vs. transplanted heart: [place] heart Associated angina: unspecified whether angina present Qualified Code(s): I25.10 - Atherosclerotic heart disease of [place] coronary artery without angina pectoris
[2023-04-12] MEDS ORDERED: DIPRIVAN VIAL 20 ML ONE (11:42)
[2023-04-12] MEDS ORDERED: NS 500 ML IV 500 ML IV ONE (11:56)
[2023-04-12] MEDS: NS 1,000 ML IV 1,000 ML IV SCH (12:57)
[2023-04-12 13:37] VITALS: O2SAT 99
[2023-04-12 13:41] VITALS: BP 116/77; PULSE 88; TEMP 97.5
== END 2023-04-12 15:35 | disposition home or self-care (01) ==
LOC: ER 20:25 → MED/SURG 20:25
PROVIDERS: ADMIT Family Medicine; ATTEND Internal Medicine
PROC: SIGMOID (2023-04-12 07:35)
DX: Z79.01 Long term (current) use of anticoagulants; N40.0 Benign prostatic hyperplasia without lower urinary tract symptoms; D64.89 Other specified anemias; I10 Essential (primary) hypertension; E78.2 Mixed hyperlipidemia; K62.5 Hemorrhage of anus and rectum; K64.9 Unspecified hemorrhoids; E83.42 Hypomagnesemia; I25.10 Atherosclerotic heart disease of native coronary artery without angina pectoris; R55 Syncope and collapse; K57.30 Diverticulosis of large intestine without perforation or abscess without bleeding; I48.91 Unspecified atrial fibrillation; R06.02 Shortness of breath